=== PATIENT | male | born 1980 | race Asian ===

== ENCOUNTER 2020-05-26 15:52 | Emergency (ER) | payer SELFPAY ==
[~2020-05-26] VITALS: Ht 172.7 cm; Wt 86.2 kg
[2020-05-26] MEDS ORDERED: LIDOCAINE HCL 1% 20 ML VIAL IJ ONE (16:15)
--- NOTE | 2020-05-26 16:24 | NUR ---
DR JENSEN AT BEDSIDE FOR WOUND CARE/SUTURES. WOUND WAS IRRIGATED WITH NS
[2020-05-26] MEDS ORDERED: TDAP DIPH,PERTUSS,TET VAC/PF 0.5 ML DISP.SYRIN IM ONE ×2 (16:45→16:48)
--- NOTE | 2020-05-26 17:25 | NUR ---
LAC WAS SUTURED BY . STERILE DRESSING APPLIED. DC AND FOLLOW UP INSTRUCTIONS GIVEN AND EXPLAINED TO PATIENT WHO STATES HE UNDERSTANDS ALL INSTRUCTIONS. PATIENT TO SEE HAND SURGEON WITHIN 2-3 DAYS
== END 2020-05-26 17:27 | disposition home or self-care (01) ==
LOC: ER 15:56
DX: S61.411A Laceration without foreign body of right hand, initial encounter (principal); W45.8XXA Other foreign body or object entering through skin, initial encounter; Y93.H3 Activity, building and construction; Y92.89 Other specified places as the place of occurrence of the external cause
CPT/HCPCS: 12002; 90471; 90715; 99283; J3490; A4217; A4663